=== PATIENT | female | born 1970 | race Two or more races ===

== ENCOUNTER → 2021-05-01 | Outpatient (CLI) | payer OTHER ==
--- NOTE | 2021-05-01 17:14 | RAD ---
Examination: 2 views of the right knee and 3 views of the left shoulder HISTORY: History of right knee pain, left shoulder pain COMPARISON: None available Findings: Mild joint space loss medial, lateral, patellofemoral compartments. Humerus head is within the glenoid. Mild joint space acromioclavicular joint, acromioclavicular joint s. IMPRESSION: 1. Mild tricompartmental degenerative changes. 2. Mild degenerative changes likely acromioclavicular joint, glenohumeral joint. Electronically signed by: Popeye Draper MD (05/01/2021 5:11 PM) [id number]
== END ==
LOC: RAD 11:23
PROVIDERS: ATTEND Anesthesiology Pain Medicine
DX: Z02.71 Encounter for disability determination (principal); M17.11 Unilateral primary osteoarthritis, right knee; M19.012 Primary osteoarthritis, left shoulder
CPT/HCPCS: 73030; 73560